=== PATIENT | male | born 1990 | race Two or more races ===

== ENCOUNTER 2023-08-14 15:49 | Emergency (ER) | payer OTHER ==
[2023-08-14 16:15] VITALS: BP 120/67; PULSE 80; RESP 16; TEMP 99.2; BMI 27.3
[2023-08-14] MEDS ORDERED: DIPHTH,PERTUSS(ACELL),TET 0.5 ML DISP.SYRIN IM ONE (17:02)
[2023-08-14] MEDS: DIPHTH,PERTUSS(ACELL),TET 0.5 ML DISP.SYRIN IM ONE (17:05)
== END 2023-08-14 17:10 | disposition home or self-care (01) ==
LOC: FER 15:49
PROC: 0HQGXZZ Repair Left Hand Skin, External Approach (ICD-10-PCS; principal; 2023-08-14)
PROC: 3E0234Z Introduction of Serum, Toxoid and Vaccine into Muscle, Percutaneous Approach (ICD-10-PCS; 2023-08-14)
DX: S61.217A Laceration without foreign body of left little finger without damage to nail, initial encounter (principal); W26.0XXA Contact with knife, initial encounter
CPT/HCPCS: 12001-25; 73140-TC-LT-FY; 90471; 90715; 99283-25